=== PATIENT | female | born 1965 | race Caucasian/White ===

== ENCOUNTER 2018-07-14 08:45 | Outpatient (CLI) | payer OTHER, SELFPAY ==
[2018-07-14 09:33] LABS: Hemoglobin A1C 5.9 % (4.5-6.2)
[2018-07-14 10:12] LABS: ALT 26 U/L (12-78); AST 18 U/L (15-37); Albumin 3.5 g/dL (3.4-5.0); Alkaline Phosphatase 61 U/L (46-116); Anion Gap 12.3 mmol/L (3-11); BUN 12 mg/dL (7-18); Bilirubin, Total 0.3 mg/dL (0.2-1.0); CO2 23.7 mmol/L (21.0-32.0); CREATININE 0.89 mg/dL (0.55-1.02); Calcium 8.1 mg/dL (8.5-10.1); Chloride 104 mmol/L (98-107); Cholesterol 191 mg/dL (50-200); Glucose 100 mg/dL (70-100); HDL Cholesterol 35 mg/dL (40-60); LDL CHOLESTEROL 120 mg/dL (<100); Potassium 3.6 mmol/L (3.5-5.1); Sodium 140 mmol/L (136-145); Total Protein 6.9 g/dL (6.4-8.2); Triglyceride 138 mg/dL (30-150)
== END 2018-07-14 09:05 ==
PROVIDERS: PCP Family Medicine; Visit Provider Family Medicine
DX: E78.5 Hyperlipidemia, unspecified (principal); R63.8 Other symptoms and signs concerning food and fluid intake; E11.9 Type 2 diabetes mellitus without complications; Z98.84 Bariatric surgery status
CPT/HCPCS: 36415; 80053; 80061; 83721; 83036

== ENCOUNTER 2019-02-27 10:50 | Outpatient (CLI) | payer OTHER, SELFPAY ==
--- NOTE | 2019-02-27 13:00 | DI.US_ITS ---
EXAM: US LOWER EXTREMITY VENOUS LT CLINICAL HISTORY: left calf pain M79.605. TECHNIQUE: Ultrasound performed using standard protocol. COMPARISON: No exams were available for comparison FINDINGS: There is no evidence of DVT, or superficial thrombophlebitis or a Harrison's cyst. Incidental note is m [place] of a left groin lymph node measuring 3.4 x 0.4 x 1.6 cm.
== END 2019-02-27 11:10 ==
PROVIDERS: PCP Family Medicine; Visit Provider Family Medicine
DX: M79.662 Pain in left lower leg (principal); R59.0 Localized enlarged lymph nodes
CPT/HCPCS: 93971

== ENCOUNTER 2019-05-02 13:53 | Outpatient (CLI) | payer OTHER, SELFPAY ==
--- NOTE | 2019-05-02 15:30 | DI.RAD_ITS ---
EXAM: XR FOOT LT COMPLETE CLINICAL HISTORY: LT FOOT PAIN M79.672 TECHNIQUE: COMPARISON: No exams were available for comparison FINDINGS: Three views were obtained. There are osteophytes at the sites of attachment of the plantar fascia an d Achilles tendon on the calcaneus. No other bony or soft tissue abnormality seen. IMPRESSION:
== END 2019-05-02 14:13 ==
PROVIDERS: PCP Family Medicine; Visit Provider Podiatrist Foot & Ankle Surgery
DX: M79.672 Pain in left foot (principal); M25.772 Osteophyte, left ankle
CPT/HCPCS: 73630

== ENCOUNTER 2019-11-02 18:59 | Outpatient (REF) | payer OTHER, SELFPAY ==
[2019-11-04 00:03] LABS: COVID-19 RT-PCR Result NEGATIVE (Negative)
== END 2019-11-02 19:19 ==
LOC: LBN 18:59
PROVIDERS: PCP Family Medicine; Visit Provider Nurse Practitioner Adult Health
DX: Z20.828 Contact with and (suspected) exposure to other viral communicable diseases (principal)
CPT/HCPCS: U0003

== ENCOUNTER 2019-12-06 15:18 | Outpatient (REF) | payer OTHER, SELFPAY ==
--- NOTE | 2019-12-06 14:00 | PAPFT_PTH ---
PATIENT: Whit Gutierrez LOC: [facility] U#:[id number] AGE/SX: 54/F ROOM: RE12/06/[address]: Nickie Bearden MD, DC : 1965 BED: DIS: 12/06/2019 SPEC #: [id number] RECD: 12/10/19 12:56 STATUS: TREMAYNE LARIOS #: [id number] KAREN: 12/06/19 14:[address]: Nickie Bearden DEPT: [facility] Cytology RECD BY: Vicky Malloy Tissues: 1 - CX/ENDOCX FOR PAP SMEARS Procedures: PAP THIN PREP/UVM Screening HPV DNA PROBE Comments: [id number]
== END 2019-12-06 15:38 ==
LOC: LBN 15:18
PROVIDERS: PCP Family Medicine; Visit Provider Family Medicine
DX: Z12.4 Encounter for screening for malignant neoplasm of cervix (principal); Z11.51 Encounter for screening for human papillomavirus (HPV)
CPT/HCPCS: 88142; 87624

== ENCOUNTER 2020-03-28 17:34 | Outpatient (REF) | payer OTHER, SELFPAY ==
[2020-03-30 09:57] LABS: COVID-19 RT-PCR Result Not Detected ((See Note))
== END 2020-03-28 17:54 ==
LOC: LBN 17:34
PROVIDERS: PCP Family Medicine; Visit Provider Nurse Practitioner Adult Health
DX: Z11.59 Encounter for screening for other viral diseases (principal)
CPT/HCPCS: U0003

== ENCOUNTER 2020-04-21 15:51 | Outpatient (CLI) | payer OTHER, SELFPAY ==
--- NOTE | 2020-04-21 15:30 | DI.RAD_ITS ---
EXAM: XR KNEE RT 4V AP,LAT,CESIA,PAT CLINICAL HISTORY: eval R knee pain, h/o meniscal repari. TECHNIQUE: 2D digital imaging was performed. COMPARISON: No previous for comparison. FINDINGS: Mild periarticular spurring is present. The joint spaces are otherwise well maintained. The bones a re intact and normally mineralized. No joint effusion is seen. The soft tissues are unremarkable. IMPRESSION: Mild degenerative changes of the right knee. DATA REPOSITORY: RADIATION DOSE DELIVERED:
--- NOTE | 2020-04-21 15:30 | DI.RAD_ITS ---
EXAM: XR HEEL LT OS CALCIS CLINICAL HISTORY: worsening L heel pain. TECHNIQUE: 2D digital imaging was performed. COMPARISON: CR XR FOOT LT COMPLETE from 05/02/2019 FINDINGS: There is again seen an enthesophyte at the Achilles insertion site onto the calcaneus. There does ap pear to be soft tissue thickening in the region of the Achilles tendon insertion. Tendinosis or part ial tear cannot be excluded. MRI may be considered if clinically appropriate. The calcaneus is norm ally mineralized. No acute fracture or dislocation. IMPRESSION: DATA REPOSITORY: RADIATION DOSE DELIVERED:
== END 2020-04-21 16:11 ==
PROVIDERS: PCP Family Medicine; Visit Provider Student in an Organized Health Care Education/Training Program
DX: M79.672 Pain in left foot (principal); M17.11 Unilateral primary osteoarthritis, right knee; M77.8 Other enthesopathies, not elsewhere classified
CPT/HCPCS: 73564; 73650

== ENCOUNTER 2020-05-23 19:20 | Outpatient (REF) | payer OTHER, SELFPAY ==
[2020-05-26 21:29] LABS: COVID-19 RT-PCR Result NEGATIVE (Negative)
== END 2020-05-23 19:40 ==
LOC: LBN 19:20
PROVIDERS: PCP Family Medicine; Visit Provider Nurse Practitioner Adult Health
DX: Z11.59 Encounter for screening for other viral diseases (principal)
CPT/HCPCS: U0003

== ENCOUNTER 2020-06-24 00:44 | Outpatient (CLI) | payer OTHER, SELFPAY ==
--- NOTE | 2020-06-24 08:15 | DI.MAMMO_ITS ---
EXAM: MG MAMMO SCREENING CLINICAL HISTORY: screening,Z12.39 TECHNIQUE: Bilateral full field digital CC and MLO mammographic images were obtained with 3D tomosyn thesis and utilizing computer aided detection (CAD). COMPARISON: Available for comparison. FINDINGS: Masses/Architectural Distortion: None seen. Microcalcifications: No suspicious pleomorphic-type are seen. Skin Thickening/Nipple Retraction: None. IMPRESSION: 1. No significant interval change with no specific features of malignancy noted. 2. Unless there is more urgent need, screening mammography is recommended, as per [employer] guidelines. BI-RADS Category 1 - Negative Breast Density - Category B - Scattered areas of fibroglandular density Breast density category C or D implies that the patient has dense breast tissue. Dense breast tissue is very common and is not abnormal but dense breast tissue can make it harder to find cancer on a ma mmogram. Also, dense breast tissue may increase their breast cancer risk. This information about the result of the mammogram report was provided to the patient to raise their awareness. Use this report when you speak with the patient about their risks for breast cancer, which includes their family hist ory. At that time, you may recommend for more screening tests (Ultrasound or MRI) as they might be us eful based on their risk. A negative radiographic report should not delay biopsy if a dominant or clinically suspicious mass is present. Up to ten percent of cancers are not identified on mammography. A negative report may reinforce clinical impression. Adenosis and dense breasts may obscure an underlying neoplasm. False positive reports average 6 to 10%. Patient will receive a letter notifying them of these results.
== END 2020-06-24 01:04 ==
PROVIDERS: PCP Family Medicine; Visit Provider Family Medicine
DX: Z12.31 Encounter for screening mammogram for malignant neoplasm of breast (principal)
CPT/HCPCS: 77063; 77067

== ENCOUNTER 2020-07-09 02:02 | Outpatient (CLI) | payer OTHER, SELFPAY ==
--- NOTE | 2020-07-09 06:15 | DI.MRI_ITS ---
EXAM: MR LOWER JOINT RT WO CLINICAL HISTORY: RT KNEE PAIN, INTERNAL DERANGEMENT,M25.561,M23.91. TECHNIQUE: Multiplanar multisequence MRI was performed. COMPARISON: CR XR KNEE RT 4V AP,LAT,CESIA,PAT from 04/21/2020 FINDINGS: BONES: There is no fracture or contusion pattern. JOINTS: Articular cartilage is unremarkable. There is a small joint effusion. TENDONS: Extensor mechanism: Unremarkable. Medial retinaculum: Unremarkable. Lateral retinaculum: Unremarkable. Popliteus: Unremarkable. MUSCLES: Unremarkable. MENISCI: There is abnormal signal seen in the body and posterior horn of the medial meniscus. The pa tient reports prior meniscal repair. The findings may represent prior surgery versus an acute tear. There is a thin linear for area of increased signal in the body of the lateral meniscus. (Series 90 01, image 19). This may represent a small tear. There is a small lateral parameniscal cyst. SOFT TISSUES: Unremarkable. LIGAMENTS: Anterior Cruciate: The anterior cruciate ligaments appear intact. There is a 6 mm fluid collection a djacent to, or partially imbedded within the anterior cruciate ligament. This may represent a gangli on cyst. Posterior Cruciate: Unremarkable. Medial Collateral:Unremarkable. Lateral Collateral: Unremarkable. OTHER: There is a tiny popliteal cyst. IMPRESSION: 1. Linear hyperintense signal seen in the body of the lateral meniscus which may represent a tear. 2. Postsurgical change versus tear involving the posterior horn and body of the medial meniscus. 3. 6 mm fluid collection addition 2, or partially imbedded within, the anterior cruciate ligament pierce picious for a ganglion cyst. 4. Small joint effusion. 5. Please see the above discussion for complete details. DATA REPOSITORY:
== END 2020-07-09 02:03 | disposition home or self-care (01) ==
LOC: DI 02:02
PROVIDERS: PCP Family Medicine; Visit Provider Student in an Organized Health Care Education/Training Program
DX: M25.561 Pain in right knee (principal); M23.91 Unspecified internal derangement of right knee; M25.461 Effusion, right knee
CPT/HCPCS: 73721

== ENCOUNTER 2020-09-30 03:10 | Outpatient (CLI) | payer OTHER, SELFPAY ==
[2020-10-01 13:32] LABS: COVID-19 RT-PCR UVMMC Result Negative (Negative)
== END 2020-09-30 03:11 | disposition home or self-care (01) ==
LOC: LBO 03:10
PROVIDERS: PCP Family Medicine; Visit Provider Family Medicine
DX: Z20.822 Contact with and (suspected) exposure to COVID-19 (principal)
CPT/HCPCS: U0003

== ENCOUNTER 2020-12-04 04:11 | Outpatient (CLI) | payer OTHER, SELFPAY ==
[2020-12-04 10:04] LABS: Hemoglobin A1C 5.6 % (<5.7)
[2020-12-04 12:06] LABS: ALT 24 U/L (14-59); AST 17 U/L (15-37); Albumin 4.1 g/dL (3.4-5.0); Alkaline Phosphatase 57 U/L (46-116); Anion Gap 9.9 mmol/L (3-11); BUN 7 mg/dL (7-18); Bilirubin, Total 0.6 mg/dL (0.2-1.0); CO2 26.1 mmol/L (21.0-32.0); Calcium 9.2 mg/dL (8.5-10.1); Chloride 105 mmol/L (98-107); Glucose 92 mg/dL (74-106); Magnesium 1.9 mg/dL (1.8-2.4); Potassium 4.2 mmol/L (3.5-5.1); Sodium 141 mmol/L (136-145); Total Protein 7.2 g/dL (6.4-8.2)
[2020-12-04 12:40] LABS: Vitamin D 25 Total 37.7 ng/mL (30-100)
[2020-12-04 14:49] LABS: Calculated LDL 145 mg/dL (<100); Cholesterol 217 mg/dL (<200); HDL Cholesterol 35 mg/dL (40-60); Triglyceride 189 mg/dL (<150)
== END 2020-12-04 04:12 | disposition home or self-care (01) ==
LOC: LBO 04:11
PROVIDERS: PCP Family Medicine; Visit Provider Family Medicine
DX: Z00.00 Encounter for general adult medical examination without abnormal findings (principal); E11.9 Type 2 diabetes mellitus without complications; R19.7 Diarrhea, unspecified; R63.8 Other symptoms and signs concerning food and fluid intake
CPT/HCPCS: 36415; 80053; 80061; 82306; 83036; 83735

== ENCOUNTER 2020-12-09 03:48 | Outpatient (CLI) | payer OTHER, SELFPAY ==
[2020-12-09 10:01] LABS: Source Nasal/Nares
[2020-12-09 14:10] LABS: COVID-19 PCR Negative (Negative)
== END 2020-12-09 03:49 | disposition home or self-care (01) ==
PROVIDERS: PCP Family Medicine; Visit Provider Student in an Organized Health Care Education/Training Program
DX: Z20.822 Contact with and (suspected) exposure to COVID-19 (principal); Z01.818 Encounter for other preprocedural examination
CPT/HCPCS: 87635

== ENCOUNTER 2020-12-09 08:21 | Outpatient (CLI) | payer OTHER, SELFPAY ==
--- NOTE | 2020-12-09 08:15 | RT.EKG_ITS ---
APPROVED REPORT Exam: Resting ECG Reason for Exam: William jerez 12/10/20 Patient Location: O HR:68 bpm ECG Measurements Heart Rate 68 AXIS KS 182 P 18 QRSd 93 QRS 20 QT 422 T 32 QTc 450 Conclusion Sinus rhythm...normal P axis, V-rate 60- 99 Low voltage, extremity leads...all extremity leads <0.5mV
== END 2020-12-09 08:22 | disposition home or self-care (01) ==
LOC: DI.CM 08:22
PROVIDERS: PCP Family Medicine; Visit Provider Family Medicine
DX: Z01.810 Encounter for preprocedural cardiovascular examination (principal)
CPT/HCPCS: 93010

== ENCOUNTER 2020-12-10 07:12 | Day surgery (SDC) | payer OTHER, SELFPAY ==
[2020-12-10] VITALS (9 sets, daily range): BP systolic 105–120; BP diastolic 66–76; PULSE 57–79; RESP 10–16; TEMP 36–36.7; O2SAT 94–98; BMI 32.0
--- NOTE | 2020-12-10 07:31 | W.PREOPHP ---
Date of service: 12/10/20 Assessment and Plan Assessment and plan (1) Achilles bursitis or tendinitis: Status: Acute Assessment and plan: Debridement left achilles tendon and Haglud's deformity. Details of surgery were discussed with patient as well as risks and pertinent anatomy. All questions were answered. History of Present Illness History of Present Illness Chief Complaint: Left ankle pain Narrative: Whit is a 55 year old female who comes in today for a debridement of her left achilles tendon with Venu's debridement as well. She has been dealing with left ankle pain for over one year now since July of 2019. She has failed conservative treatments including heel lifts, PT and OTC medications. At this pont Dr. Pedro offers surgical intervention and she is anxious to proceed. Pertinent Surgical Information Patient denies history of hypertension, CVA, NV, angina, asthma, COPD, renal or liver disorders, hepatitis, bleeding disorders, diabetes, immune or thyroid disorders. No complications from anesthesia. Review of Systems Constitutional Constitutional: Denies fever(s) ENT Ears, Nose, Mouth, and Throat: Denies dizziness and Denies sore throat Cardiovascular Cardiovascular: Denies chest pain, Denies palpitations and Denies dyspnea Respiratory Respiratory: Denies cough and Denies dyspnea Gastrointestinal Gastrointestinal: Denies abdominal pain, Denies melena, Denies hematochezia, Denies diarrhea, Denies nausea and Denies vomiting Genitourinary Genitourinary: Denies hematuria and Denies dysuria Neurologic Neurologic: Denies dizziness Endocrine Endocrine: Denies palpitations [facility] Medical History Chondromalacia (03/02/17) Depressive disorder Headache Herpes simplex (05/05/01) Hyperlipidemia Increased BMI Lap banding -2006 Malignant neoplasm of skin Medial meniscus tear (03/02/17) 03/02/17 [facility]-LEFT KNEE Pes planus (10/19/12) Right knee pain Sinusitis Surgical History GASTRIC LAP BAND (~04/2007) Ligation of fallopian tube (~1990) Meniscectomy 2000 RIGHT 01/20 LEFT Repair of umbilical hernia VEIN STRIPPING (~1997) Family History Nephew Neoplasm TONGUE Mother , 44 Substance abuse Heart disease Myocardial infarction Alcohol abuse Hyperlipidemia Essential hypertension Father Diabetes Essential hypertension Depression Heart disease Hyperlipidemia Sister , 15 Turk's sarcoma Sister , 22 Ataxia RANDAL Cancer Brother No problems noted. Maternal Grandfather , 60 Heart disease Stroke Paternal Grandfather , 65 Heart disease Myocardial infarction Alcohol abuse Maternal Grandmother , 80 Essential hypertension Heart disease Stroke Paternal Grandmother , 95 Asthma Daughter Depression Daughter No problems noted. Social History (Updated 12/09/20 @ 14:21 by Fredy Stovall) Smoking/Tobacco Use Status: Never Smoking risk assessment performed?: Yes Alcohol Intake: current Alcohol Intake frequency: a few times a month Alcohol type: beer, wine and hard liquor Drug use: Never Substance use type: does not use Caregiver/Support person: No Household members: spouse Housing: house Communication Needs: None Pets and animals: No Sexually active: No Do you think of yourself as: straight/heterosexual Current gender identity: female What is your relationship status?: How often do you talk on the phone with friends or family?: three or more times per week How often do you get together with friends or relatives?: twice per week How often do you attend druze or rastafari services?: decline to answer Do you belong to any clubs or organized social groups?: no Panel score (0-1 are the most socially isolated patients): 2 Duration: < 15 minutes/day Priscilla/Restoration: Pentecostalism Special priscilla needs: No Seatbelt use: always Helmet use: Yes Drive intox or ride w/intox straight truck driver: No Do you feel safe at home: Yes Do you feel safe in your relationship?: Yes Meds Allergies and Home Medications Allergies Allergy/AdvReac Type Severity Reaction Status Date / Time No Known Allergies Allergy Verified 12/09/20 09:14 Home Medications Medication Instructions Recorded Confirmed Type acetaminophen [Tylenol Extra 500 mg PO qid prn 03/11/17 12/09/20 History Strength] multivitamin with minerals 1 cap PO DAILY cap 05/02/18 12/09/20 History cetirizine 10 mg tablet 10 mg PO DAILY PRN 07/18/18 12/09/20 History cholecalciferol (vitamin D3) 50 50 mcg PO DAILY 06/12/20 12/09/20 History mcg (2,000 unit) capsule valacyclovir 500 mg tablet 500 mg PO BID PRN #28 tab-cap 07/07/20 12/09/20 Rx cyanocobalamin (vitamin B-12) 1,000 mcg PO DAILY 12/10/20 12/10/20 History [Vitamin B-12] Exam Const General: cooperative and no acute distress Orientation: alert and awake [facility] Head: normocephalic and atraumatic Other: soft palate rises symmetrically, no erythema Eyes Conjunctivae: conjunctivae normal Sclera: sclerae normal Resp Effort & Inspection: normal respiratory effort Auscultation: clear to auscultation bilaterally and no wheezes Cardio Rate: regular rate Rhythm: regular rhythm Heart Sounds: S1 normal, S2 normal and no murmurs GI Palpation: soft, no hepatosplenomegaly and nontender Auscultation: normal bowel sounds
[2020-12-10] MEDS: Celecoxib 200 MG CAP 400 MG PO (07:49)
[2020-12-10] MEDS: Acetaminophen 500 MG TAB 1000 MG PO (07:50)
--- NOTE | 2020-12-10 07:59 | PDOC.DSDIS_ITS ---
Discharge Plan Disposition Patient Disposition: HOME Condition: Good Discharge Details Reason For Visit: Achilles Debridement L ankle Attending Provider: Carroll Pedro Primary Care Provider: Nickie Bearden Home Meds and New Rx's Prescriptions: New ibuprofen 600 mg tablet 600 mg PO TID PRN (Reason: pain) Qty: 30 RF: 0 acetaminophen 325 mg capsule 650 mg PO ONCE PRNQty: 60 RF: 0 hydrocodone-acetaminophen 5-325 mg tablet 1 tab PO Q6H PRN (Reason: pain) Qty: 10 RF: 0 aspirin 81 mg tablet,delayed release (DR/EC) 81 mg PO BID Qty: 60 RF: 0 Continued cholecalciferol (vitamin D3) 50 mcg (2,000 unit) capsule 50 mcg PO DAILY RF: 0 multivitamin with minerals capsule 1 cap PO DAILY RF: 0 cetirizine [Zyrtec] 10 mg tablet 10 mg PO DAILY PRNRF: 0 valacyclovir [Valtrex] 500 mg tablet 500 mg PO BID PRN (Reason: herpes) Qty: 28 RF: 5 cyanocobalamin (vitamin B-12) [Vitamin B-12] 1,000 mcg Tablet 1,000 mcg PO DAILY RF: 0 Discontinued acetaminophen [Tylenol Extra Strength] 500 MG tablet 500 mg PO qid prn RF: 0 Discharge Instructions Additional Instructions: Achilles Debridement discharge Instructions Activity: You are NON WEIGHT BEARING. You should keep the leg elevated as much as possible. You may wiggle your toes and move your hip and knee. Dressings: You should keep your splint clean and dry. Do NOT get wet or dirty. If you have issues with your splint, please call the office at [phone] or the hospital after hours. Medications: - You should take Tylenol and Ibuprofen around the clock for baseline pain. - You have been prescribed a stronger narcotic for breakthrough pain. - You should take a Baby Aspirin (81mg) twice a day for blood clot prevention. Follow-up: 2 weeks Referrals: Carroll Pedro MD [ [facility] STAFF PHYSICIAN] - Equipment/Supplies: Walker Activity:: Elevate Remove Dressings/Wound Care:: Do Not Remove Shower/Bathe:: Cover Diet:: As Tolerated Discharge Orders Discharge Orders: Discharge Order (Routine); Ordered 07/07/21 Ordered By: Nimesh Elias DS: Diagnosis Discharge Diagnosis (1) Achilles bursitis or tendinitis: Status: Acute
[2020-12-10] MEDS: Lactated Ringers 1,000 ML 80 ML IV (08:00)
--- NOTE | 2020-12-10 08:15 | ANES.PREOP_ITS ---
General Info Date of Service Date Performed: 12/10/20 Height: 5 ft 3.5 in Weight: 83.3 kg Body Mass Index (BMI): 32.0 Surgical Procedure: Operation Date: 12/10/20 08:40 Proposed Procedures Side Surgeon p Ankle Achilles Tendon Debridement Left Carroll Pedro MD s ARETHA RESECYION, ACHILLES REATTACHMENT Left Carroll Pedro MD Meds Allergies and Home Medications Allergies Allergy/AdvReac Type Severity Reaction Status Date / Time No Known Allergies Allergy Verified 12/09/20 09:14 Home Medication Medication Instructions Recorded multivitamin with minerals 1 cap PO DAILY cap 05/02/18 cetirizine 10 mg tablet 10 mg PO DAILY PRN 07/18/18 cholecalciferol (vitamin D3) 50 50 mcg PO DAILY 06/12/20 mcg (2,000 unit) capsule valacyclovir 500 mg tablet 500 mg PO BID PRN #28 tab-cap 07/07/20 acetaminophen 650 mg PO ONCE PRN #60 cap 12/10/20 aspirin 81 mg PO BID #60 tab 12/10/20 cyanocobalamin (vitamin B-12) 1,000 mcg PO DAILY 12/10/20 [Vitamin B-12] hydrocodone-acetaminophen 1 tab PO Q6H PRN #10 tab 12/10/20 ibuprofen 600 mg PO TID PRN #30 tab 12/10/20 Current Visit Medications: Current Medications Generic Name Dose Route Start Last Admin Trade Name Freq PRN Reason Stop Dose Admin Acetaminophen 1,000 mg 12/10/20 06:00 12/10/20 07:50 Acetaminophen 500 Mg Tab PO 12/10/20 16:00 1,000 mg PREOP JEWELS Administration Acetaminophen 650 mg 12/10/20 07:57 Acetaminophen 325 Mg Tab PO Q4H PRN PRN Hydrocodone Bitart/Acetaminophen 0 tab 12/10/20 07:57 Hydrocodone 5/Acetaminophen 325 Tab PO Q3H PRN PRN Pain Celecoxib 400 mg 12/10/20 06:00 12/10/20 07:49 Celecoxib 200 Mg Cap PO 12/10/20 16:00 400 mg PREOP JEWELS Administration Ringer's Solution 1,000 mls @ 80 mls/hr 12/10/20 06:00 12/10/20 08:00 IV 01/08/21 23:59 80 mls/hr INFUSION JEWELS Administration Cefazolin Sodium/Dextrose 2 gm in 50 mls @ 100 mls/hr 12/10/20 06:00 Ancef Duplex IVPB 01/08/21 23:59 PREOP JEWELS IV Miscellaneous Supplies 1 each 12/10/20 06:00 Iv Access IV 01/08/21 23:59 DIRECTED JEWELS Sodium Chloride 0 ml 12/10/20 06:00 Normal Saline Flush 10 Ml Syr IV 01/08/21 23:59 PRN PRN Sodium Chloride 0 ml 12/10/20 06:00 Normal Saline 10 Ml Vial IJ 01/08/21 23:59 DIRECTED PRN Sterile Water 0 ml 12/10/20 06:00 Water,Injection,Sterile 10 Ml Vial IJ 01/08/21 23:59 DIRECTED PRN PFSH Active Problems Active Problems: Problem Status Onset Code Diarrhea R19.7 Achilles bursitis or tendinitis M76.60 Internal derangement of right knee M23.91 Right knee pain M25.561 Herpes simplex 05/05/01 B00.9 Achilles bursitis or tendinitis M76.60 Change in stool Pes planus 10/19/12 M21.40 Medial meniscus tear 03/02/17 S83.249A Malignant neoplasm of skin C44.90 Increased BMI R63.8 Hyperlipidemia E78.5 Depressive disorder F32.9 Chondromalacia 03/02/17 M94.20 Annual physical exam 07/12/17 Z00.00 Medical History Medical History Chondromalacia (03/02/17) Depressive disorder Headache Herpes simplex (05/05/01) Hyperlipidemia Increased BMI Lap banding -2006 Malignant neoplasm of skin Medial meniscus tear (03/02/17) 03/02/17 [facility]-LEFT KNEE Pes planus (10/19/12) Right knee pain Sinusitis Surgical History Surgical History GASTRIC LAP BAND (~04/2007) Ligation of fallopian tube (~1990) Meniscectomy 2000 RIGHT 01/20 LEFT Repair of umbilical hernia VEIN STRIPPING (~1997) Tobacco Smoking/Tobacco Use Status: Never Passive smoking exposure: Yes Alcohol Alcohol Intake: current Alcohol intake frequency: a few times a month Alcohol ty pe: beer, wine and hard liquor Substance Use Substance use: Never Substance use type: does not use Vital Signs and Lab Results Vital Signs Most Recent Vital Signs in EMR: Most Recent Vital Signs Temp Pulse Resp BP Pulse Ox 36.7 C 79 16 120/76 98 12/10/20 07:34 12/10/20 07:34 12/10/20 07:34 12/10/20 07:34 12/10/20 07:34 Point of Care Results Point of Care Results: POC- Test(urine) Negative 12/10/20 07:51 Lab Results Blood Type / Crossmatch: No Data to Display Complete Blood Count: No Data to Display Complete Metabolic Panel: Sodium Level 141 mmol/L (136-145) 12/04/20 09:38 12/04/20 Potassium Level 4.2 mmol/L (3.5-5.1) 12/04/20 09:38 12/04/20 Chloride Level 105 mmol/L (98-107) 12/04/20 09:38 12/04/20 Carbon Dioxide Level 26.1 mmol/L (21.0-32.0) 12/04/20 09:38 12/04/20 Blood Urea Nitrogen 7 mg/dL (7-18) 12/04/20 09:38 12/04/20 Creatinine 1.0 mg/dL (0.55-1.02) 12/04/20 09:38 12/04/20 Estimated GFR/1.73 m2 58.00 (mL/min/1.73m2) 12/04/20 09:38 12/04/20 Magnesium Level 1.9 mg/dL (1.8-2.4) 12/04/20 09:38 12/04/20 Calcium Level 9.2 mg/dL (8.5-10.1) 12/04/20 09:38 12/04/20 Albumin 4.1 g/dL (3.4-5.0) 12/04/20 09:12/04/20 Glucose Level 92 mg/dL (74-106) 12/04/20 09:38 12/04/20 Hemoglobin A1c 5.6 % (<5.7) 12/04/20 09:38 12/04/20 Liver Function Panel: Alanine Aminotransferase (ALT/SGPT) 24 U/L (14-59) 12/04/20 09:38 12/04/20 Aspartate Amino Transf (AST/SGOT) 17 U/L (15-37) 12/04/20 09:38 12/04/20 Coagulation Panel: No Data to Display Cardiac Panel: No Data to Display Arterial Blood Gas: No Data to Display Venous Blood Gas: No Data to Display Pancreas Panel: No Data to Display Thyroid Panel: No Data to Display Infectious Disease: Coronavirus (COVID-19)(PCR) Negative (Negative) 12/09/20 09:04 12/09/20 Coronavirus 2019 Source Nasal/Nares 12/09/20 09:04 12/09/20 Blood Cultures: No Data to Display Toxicology Panel: No Data to Display Panel: No Data to Display Anesthesia Assessment and Plan Anesthesia History Personal History: No History of Anesthesia Complications and Other (Hypotentension with SAB) Family History: No Family History of Anesthesia Complications Exercise Tolerance Exercise Tolerance: Metabolic Equivalents>4 Pertinent Negatives Pertinent Negatives: No Symptoms of GERD, No Major Cardiovascular Symptoms or Complaints, No Major Pulmonary Symptoms or Complaints and No History of CVA/TIA Cardiac & Pulmonary Exam Cardiac Exam: Normal S1/S2 Heart Sounds Pulmonary Exam: Clear Bilateral Breath Sounds Airway Exam Known Difficult Airway: No Mallampati Class: 1 Mouth Opening: Normal (> 3cm) Thyromental Distance: Greater than 3 cm Neck Range of Motion: Full ROM Neck Circumference: Normal Teeth Condition: Normal Dentition Airway Comments: Front lower tooth capped 41? ASA Classification ASA Score: ASA 2 Emergency Case?: No NPO Status NPO Status: NPO Clears >2 hours, Solids >8 hours Status Status: Negative HCG Anesthesia Plan Resuscitation Status: Full Code Anesthesia Technique: General Anesthesia Airway Planned: Endotracheal Tube Monitors Used: Standard Monitors
[2020-12-10] MEDS: ceFAZolin 2 GM/50 ML BAG IVPB (09:24)
[2020-12-10] MEDS: Bupivacaine 0.25% Pres-Free 30 ML VIAL (10:23)
--- NOTE | 2020-12-10 10:28 | W.PM.OP ---
Date of service: 12/10/20 Time of Service: 10:29 Operative Note Operative Note DATE OF PROCEDURE: 12/10/20 PRE-OP DIAGNOSIS: Left Achilles Tendinitis, Venu Deformity POST-OP DIAGNOSIS: same PROCEDURE: Left Achilles Insertion Debridement, Venu Resection, Achilles Tendon Repair SURGEON: Carroll Pedro ONCOLOGIST: Nimesh Elias ANESTHESIA TYPE: General LMA/ETT Refer to Anesthesia Record ESTIMATED BLOOD LOSS: 10 PATHOLOGY: none sent TOURNIQUET TIME: 0 COMPLICATIONS: None Patient was transported to: PACU Indications: Whit is a 55 year old female who has had persistent pain about the heel. Clinical evaluation and x-rays demonstrated clear calcific tendinitis of the Achilles insertion. She has failed a host of conservative options but continues to have pain and difficulty with shoe wear. Therefore, I offered operative intervention in the form of Achilles debridement, bony prominence resection, and Achilles tendon repair as indicated. I reviewed the risk of the procedure to include bleeding, infection, pain, stiffness, damage to nerves and vessels, weakness, Achilles rerupture or retear, wound healing complications. Despite these risk,she elected to proceed. Findings: There were notable calcific prominence of the calcaneal tuberosity which were resected and the calcaneus smooth, a small Venu deformity was removed, and Achilles repaired back down to the calcaneus. Procedure Description: Whit was greeted in the preoperative holding area. Identity was confirmed the correct side was identified and marked. Consent was reviewed the patient and signed. History of physical was updated. She was taken to the operating room. A general anesthetic was administered and then the patient was placed into the prone position. Chest rolls were placed to well-padded the chest and allow for chest expansion. The arms were placed in the 90-90 position with all bony prominences well-padded. There was gel pad placed underneath the knees and a prone ramp was placed underneath the operative leg. No tourniquet was used. Prophylactic antibiotics in the form of Cefazolin were given. A timeout was performed for safe surgery. The proposed surgical site was then injected with 0.25% bupivacaine and Exparel. A midline incision was then made overlying the Achilles tendon and its insertion on the calcaneus. This incision was taken down all the way to the peritenon of the Achilles tendon and its insertion on the calcaneus. Full-thickness flaps were then elevated medially and laterally to better expose Achilles tendon and its insertion. A midline incision was then made within the Achilles tendon. The tendon was elevated off of the calcaneus medially and laterally leaving some bands at the far reaches for later tensioning of the Achilles tendon. Calcific deposits from in the tendon were then removed sharply. Prominences over the calcaneal tuberosity were also removed with a rongeur. I took a chisel to then resect a small Venu deformity. This was checked by dorsiflexing the foot and inspecting for any impingement of the calcaneal prominence onto the Achilles tendon I also used a chisel to chamfer the medial lateral prominences of the calcaneal tuberosity as well. Once this was completed I then inspected the calcaneal insertion for any remnant sharp prominences or calcifications. A rasp was also used to smooth this down fully until there is no prominence projecting either posteriorly, medially, laterally. I made sure that the left attachments of the Achilles tendon to help guide the repair. I then placed a single 6.0 mm Mitek Fastin anchor into the superior margin of the calcaneal tuberosity. I placed a locking Krak?w type suture into each side of the Achilles tendon with 1 limb of the suture from the anchor. The extra limb of the suture was then passed through the tendon wants to serve as a damari. Once these both were passed I was able to shuttle the tendon back down to the bone by pulling on the free limb of the suture. The sutures were then tied which reapproximated the Achilles tendon down to the tuberosity quite nicely. Using the tails of the suture as well as the remnant tails from the previously tied sutures, I incorporated these into a [place] [employer] 4.75 mm knotless anchor. This reapproximated the tendon over the entire footprint of the calcaneus. The suture limbs were then cut. The periphery of the Achilles tendon slit was inspected and any residual split of the tendon was reapproximated. The wounds and thoroughly irrigated. The deep tissues were anesthetized with 0.2% bupivacaine. The Achilles paratenon was closed with a running 3-0 Vicryl. The deep tissue was closed with 3-0 Vicryl followed by a 4-0 nylon. Xeroform, 4 x 4, ABD, web roll was applied to the foot in a short leg splint was placed. The patient was then placed into the supine position. There is no notable complications from the prone positioning of the surgery. She was in transition back to the hospital stretcher in a stable condition. The procedure was tolerated well and the patient was transferred back to the PACU in stable condition.
[2020-12-10] MEDS: Normal Saline Flush 10 ML SYR IV (11:29)
[2020-12-10] MEDS: HYDROmorphone 2 MG/ML VIAL IVP (11:29)
--- NOTE | 2020-12-10 12:02 | W.ANESPOSTOP ---
Postoperative Evaluation Date, Time and Location Date Performed: 12/10/20 Time Performed: 12:02 Patient Location: Day Surgery Unit Vital Signs Most Recent Imported Vital Signs: Most Recent Vital Signs Temp Pulse Resp BP Pulse Ox 36.0 C L 57 L 14 110/68 94 12/10/20 11:54 12/10/20 11:54 12/10/20 11:54 12/10/20 11:54 12/10/20 11:54 Pain Score Most Recent Pain Score: Most Recent Pain Score Pain Level 2 12/10/20 11:54 Assessment Mental Status: Awake (Alert & Oriented to Patient Baseline) Airway and Respiratory Function: Patent airway with normal (patient baseline) respiratory exam Cardiovascular Function: Hemodynamically Stable Hydration Status: Adequately Hydrated Nausea & Vomiting: No Nausea or Vomiting Pain: Pain is tolerable per patient Peripheral Nerve Block: Patient did not receive a nerve block
== END 2020-12-10 13:20 | disposition home or self-care (01) ==
PROVIDERS: PCP Family Medicine; Visit Provider Student in an Organized Health Care Education/Training Program
PROC: (CPT 11043; principal; 2020-12-10 08:30)
DX: M76.62 Achilles tendinitis, left leg (principal); M89.8X7 Other specified disorders of bone, ankle and foot
CPT/HCPCS: 27650; 28119; 81025; C1713; J0131; J0690; J1100; J1885; J2001; J2250; J2405

== ENCOUNTER → 2022-02-04 02:59 | Outpatient (CLI) | payer OTHER, SELFPAY ==
--- NOTE | 2022-02-04 09:15 | DI.MAMMO_ITS ---
Exam(s) MAMMO SCREENING EXAM: MAMMO SCREENING CLINICAL HISTORY: screening, Z12.39. TECHNIQUE: Bilateral full field digital CC and MLO mammographic images were obtained with 3D tomosyn thesis and utilizing computer aided detection (CAD). COMPARISON: Prior mammograms were reviewed, the most recent being June 2020. FINDINGS: There are no new spiculated masses nor malignant appearing microcalcification groups. Benign-appearing microcalcifications again noted. There is no significant architectural distortion nor skin thickening-retraction. IMPRESSION: No radiographic evidence of malignancy. Stable benign findings. BI-RADS Category 1 - Negative Breast Density - Category A - Almost entirely fatty Breast density Category C or D implies that the patient has dense breast tissue. Dense breast tissue can make it harder to find cancer on a mammogram. Dense breast tissue is also associated with an incr eased risk of breast cancer. This information about the result of the mammogram report was provided to the patient to raise their awareness. Use this report when you speak with the patient about their risks for breast cancer, which includes their family history. At that time, you may recommend additional screening tests (Ultrasoun d or MRI) as these tests may add significant information. A negative radiographic report should not delay biopsy if a dominant or clinically suspicious mass is present. Up to ten percent of cancers are not identified on mammography. A negative report may reinforce clinical impression. Adenosis and dense breasts may obscure an underlying neoplasm. False positive reports average 6 to 10%. Patient will receive a letter notifying them of these results.
== END ==
PROVIDERS: PCP Family Medicine; Visit Provider Family Medicine
DX: Z12.31 Encounter for screening mammogram for malignant neoplasm of breast (principal); R92.0 Mammographic microcalcification found on diagnostic imaging of breast
CPT/HCPCS: 77063; 77067

== ENCOUNTER 2022-02-10 04:17 | Outpatient (CLI) | payer OTHER, SELFPAY ==
[2022-02-10 07:56] LABS: HCT 36.6 % (36.0-46.0); HGB 12.1 g/dL (11.2-15.7); MCH 29.1 pg (27.0-33.0); MCHC 33.1 % (32.0-36.0); MCV 88 fL (80-95); MPV 10.6 fL (8.0-11.0); Platelet Count 266 10^3/uL (130-400); RBC 4.16 10^6/uL (3.93-5.22); RDW 12.4 % (11.7-14.6); RDW-SD 40.2 fL; WBC 7.26 10^3/uL (4.4-10.8)
[2022-02-10 08:49] LABS: ALT 28 U/L (14-59); AST 16 U/L (15-37); Albumin 4.1 g/dL (3.4-5.0); Alkaline Phosphatase 69 U/L (46-116); Anion Gap 10.3 mmol/L (3-11); BUN 25 mg/dL (7-18); Bilirubin, Total 0.3 mg/dL (0.2-1.0); CO2 26.7 mmol/L (21.0-32.0); CREATININE 1.2 mg/dL (0.55-1.02); Calculated LDL 160 mg/dL (<100); Chloride 105 mmol/L (98-107); Cholesterol 233 mg/dL (<200); Estimated GFR 53.79 (mL/min/1.73m2); Glucose 103 mg/dL (74-106); HDL Cholesterol 43 mg/dL (40-60); Potassium 3.7 mmol/L (3.5-5.1); Sodium 142 mmol/L (136-145); TSH (W/Ref FT4) 2.53 uIU/mL (0.36-3.74); Triglyceride 152 mg/dL (<150)
[2022-02-10 13:38] LABS: Lab Add On Test DONE
[2022-02-10 13:57] LABS: Hemoglobin A1C 5.7 % (<5.7)
== END 2022-02-10 04:18 | disposition home or self-care (01) ==
LOC: LBO 04:17
PROVIDERS: PCP Family Medicine; Visit Provider Family Medicine
DX: Z00.00 Encounter for general adult medical examination without abnormal findings (principal)
CPT/HCPCS: 36415; 80053; 80061; 85027; 83036; 84443

== ENCOUNTER 2022-12-09 01:52 | Outpatient (CLI) | payer OTHER, SELFPAY ==
--- NOTE | 2022-12-09 11:04 | DI.RAD_ITS ---
Exam(s) XR ABDOMEN FLAT PLATE EXAM: 2D digital imaging was performed. CLINICAL HISTORY: CHRONIC DIARRHEA, K52.9, INTERMITTENT LARGE VOLUME WITH FECAL INCONTIENCE. COMPARISON: 01 August 2017 TECHNIQUE: Supine views of the abdomen performed. FINDINGS: BOWEL GAS PATTERN: Nondistended. No significant stool visible. CALCIFICATIONS: No radiopaque calcifications. OSSEOUS STRUCTURES: Normal for age. OTHER FINDINGS: Tubing again noted from the upper through mid right-sided the abdomen, unchanged. IMPRESSION: 1. Nonobstructive bowel gas pattern. Normal quantity of stool. DATA REPOSITORY: RADIATION DOSE DELIVERED:
== END 2022-12-09 02:12 ==
LOC: DI 01:52
PROVIDERS: PCP Family Medicine; Visit Provider Internal Medicine Gastroenterology
DX: K52.9 Noninfective gastroenteritis and colitis, unspecified (principal)
CPT/HCPCS: 74018

== ENCOUNTER 2022-12-09 03:04 | Outpatient (CLI) | payer OTHER, SELFPAY ==
[2022-12-09 11:31] LABS: HCT 40.4 % (36.0-46.0); HGB 13.2 g/dL (11.2-15.7); MCH 29.5 pg (27.0-33.0); MCHC 32.7 % (32.0-36.0); MCV 90 fL (80-95); MPV 10.9 fL (8.0-11.0); Platelet Count 291 10^3/uL (130-400); RBC 4.48 10^6/uL (3.93-5.22); RDW 12.4 % (11.7-14.6); RDW-SD 41.1 fL; WBC 7.07 10^3/uL (4.4-10.8)
[2022-12-09 12:03] LABS: Hemoglobin A1C 5.3 % (<5.7)
[2022-12-09 12:10] LABS: C-Reactive Protein 0.37 mg/dL (0.0-0.3)
[2022-12-09 12:12] LABS: Iron 94 ug/dL (50-170); Total Iron Binding Capacity 278 ug/dL (250-450)
[2022-12-09 12:23] LABS: ALT 26 U/L (14-59); AST 20 U/L (15-37); Albumin 4.1 g/dL (3.4-5.0); Alkaline Phosphatase 60 U/L (46-116); Anion Gap 8.7 mmol/L (3-11); BUN 17 mg/dL (7-18); Bilirubin, Total 0.4 mg/dL (0.2-1.0); CO2 29.3 mmol/L (21.0-32.0); Calcium 8.8 mg/dL (8.5-10.1); Calculated LDL 140 mg/dL (<100); Chloride 103 mmol/L (98-107); Cholesterol 230 mg/dL (<200); Estimated GFR 66.53 (mL/min/1.73m2); Ferritin 144 ng/mL (8-252); Glucose 92 mg/dL (74-106); HDL Cholesterol 47 mg/dL (40-60); Potassium 3.8 mmol/L (3.5-5.1); Sodium 141 mmol/L (136-145); TSH (W/Ref FT4) 1.85 uIU/mL (0.36-3.74); Total Protein 8.2 g/dL (6.4-8.2); Triglyceride 216 mg/dL (<150)
[2022-12-10 09:39] LABS: IgA 301 mg/dL (85-499)
[2022-12-13 14:20] LABS: Tissue Transglutaminase IgA <1.2 U/mL (<4.0)
== END 2022-12-09 03:05 | disposition home or self-care (01) ==
LOC: LBO 03:05
PROVIDERS: PCP Family Medicine; Visit Provider Family Medicine
DX: R53.83 Other fatigue (principal); R73.03 Prediabetes; R63.5 Abnormal weight gain; R79.89 Other specified abnormal findings of blood chemistry; E78.5 Hyperlipidemia, unspecified; R79.82 Elevated C-reactive protein (CRP)
CPT/HCPCS: 36415; 80053; 80061; 82784; 85027; 82728; 83036; 83540; 83550; 84443; 86140

== ENCOUNTER 2022-12-24 15:16 | Outpatient (REF) | payer OTHER, SELFPAY ==
[2022-12-28 18:18] LABS: Calprotectin <50.0 mcg/g
[2022-12-28 19:40] LABS: Pancreatic Elastase, F 108 mcg/g
== END 2022-12-24 15:17 | disposition home or self-care (01) ==
LOC: LBN 15:16
PROVIDERS: PCP Family Medicine; Visit Provider Internal Medicine Gastroenterology
DX: K52.9 Noninfective gastroenteritis and colitis, unspecified (principal)
CPT/HCPCS: 82656; 83993

== ENCOUNTER 2023-03-14 15:03 | Outpatient (REF) | payer OTHER, SELFPAY ==
--- NOTE | 2023-03-14 13:20 | PAPFT_PTH ---
PATIENT: Whit Gutierrez LOC: [facility] U#:[id number] AGE/SX: 57/F ROOM: RE03/14/[address]: Nickie Bearden MD, DC : 1965 BED: DIS: 03/14/2023 SPEC #: [id number] RECD: 03/15/23 15:37 STATUS: TREMAYNE REQ #: [id number] KAREN: 03/14/23 13:[address]: Nickie Bearden DEPT: [facility] Cytology RECD BY: Cheri Rosario Tissues: 1 - CX/ENDOCX FOR PAP SMEARS Procedures: PAP THIN PREP/UVM Screening HPV DNA PROBE Comments: [id number]
== END 2023-03-14 15:04 | disposition home or self-care (01) ==
LOC: LBN 15:03
PROVIDERS: PCP Family Medicine; Visit Provider Family Medicine
DX: Z12.4 Encounter for screening for malignant neoplasm of cervix (principal); Z11.51 Encounter for screening for human papillomavirus (HPV)
CPT/HCPCS: 88142; 87624

== ENCOUNTER → 2023-03-30 00:52 | Outpatient (CLI) | payer OTHER, SELFPAY ==
--- NOTE | 2023-03-30 08:45 | DI.MAMMO_ITS ---
Exam(s) MAMMO SCREENING EXAM: MAMMO SCREENING CLINICAL HISTORY: screening,z12.39. TECHNIQUE: Bilateral full field digital CC and MLO mammographic images were obtained with 3D tomosyn thesis and utilizing computer aided detection (CAD). COMPARISON: Prior mammograms were reviewed. FINDINGS: There has been no significant change in the appearance and distribution of the fibroglandular tissue. There are no new spiculated masses nor malignant appearing microcalcification groups. Benign-appearing microcalcifications again noted, unchanged. There is no significant architectural distortion nor skin thickening-retraction. IMPRESSION: No radiographic evidence of malignancy. Stable benign-appearing findings. BI-RADS Category 2 - Benign Findings Breast Density - Category A - Almost entirely fatty Breast density Category C or D implies that the patient has dense breast tissue. Dense breast tissue can make it harder to find cancer on a mammogram. Dense breast tissue is also associated with an incr eased risk of breast cancer. This information about the result of the mammogram report was provided to the patient to raise their awareness. Use this report when you speak with the patient about their risks for breast cancer, which includes their family history. At that time, you may recommend additional screening tests (Ultrasoun d or MRI) as these tests may add significant information. A negative radiographic report should not delay biopsy if a dominant or clinically suspicious mass is present. Up to ten percent of cancers are not identified on mammography. A negative report may reinforce clinical impression. Adenosis and dense breasts may obscure an underlying neoplasm. False positive reports average 6 to 10%. Patient will receive a letter notifying them of these results.
== END ==
PROVIDERS: PCP Family Medicine; Visit Provider Family Medicine
DX: Z12.31 Encounter for screening mammogram for malignant neoplasm of breast (principal)
CPT/HCPCS: 77063; 77067

== ENCOUNTER 2023-03-31 12:08 | Outpatient (CLI) | payer OTHER, SELFPAY ==
[2023-04-04 17:57] LABS: Apolipoprotein B, Serum 108 mg/dL (48-124); Beta VLDL Cholesterol Not Detected mg/dL (<15); Beta VLDL Triglycerides Not Detected mg/dL (<15); Cholesterol, Total, CDC 228 mg/dL; Chylomicron Cholesterol Not Detected; Chylomicron Triglycerides Not Detected; HDL Cholesterol, CDC 45 mg/dL (>=50); LDL Cholesterol 145 mg/dL; LDL Triglycerides 51 mg/dL (<=50); Lp(a) Cholesterol <5 mg/dL (<5); LpX Not detected; Triglycerides, CDC 164 mg/dL; VLDL Cholesterol 38 mg/dL (<30); VLDL Triglycerides 90 mg/dL (<120)
== END 2023-03-31 12:09 | disposition home or self-care (01) ==
LOC: LBO 12:08
PROVIDERS: PCP Family Medicine; Visit Provider Family Medicine
DX: E78.5 Hyperlipidemia, unspecified (principal)
CPT/HCPCS: 36415; 80061; 82172; 82664

== ENCOUNTER 2023-11-23 20:12 | Outpatient (CLI) | payer OTHER, SELFPAY ==
[2023-11-28 16:37] LABS: Apolipoprotein B, Serum 55 mg/dL (48-124); Beta VLDL Cholesterol Not Detected mg/dL (<15); Beta VLDL Triglycerides Not Detected mg/dL (<15); Cholesterol, Total, CDC 132 mg/dL; Chylomicron Cholesterol Not Detected; Chylomicron Triglycerides Not Detected; HDL Cholesterol, CDC 44 mg/dL (>=50); LDL Cholesterol 66 mg/dL; LDL Triglycerides 27 mg/dL (<=50); Lp(a) Cholesterol <5 mg/dL (<5); LpX Not detected; Triglycerides, CDC 103 mg/dL; VLDL Cholesterol 22 mg/dL (<30); VLDL Triglycerides 61 mg/dL (<120)
== END 2023-11-23 20:13 | disposition home or self-care (01) ==
LOC: LBO 20:15
PROVIDERS: PCP Family Medicine; Visit Provider Family Medicine
DX: E78.5 Hyperlipidemia, unspecified (principal)
CPT/HCPCS: 36415; 80061; 82172; 82664

== ENCOUNTER 2024-10-02 00:28 | Outpatient (CLI) | payer OTHER, SELFPAY ==
[2024-10-02 12:52] LABS: HCT 37.8 % (36.0-46.0); HGB 12.4 g/dL (11.2-15.7); MCH 29.3 pg (27.0-33.0); MCHC 32.8 % (32.0-36.0); MCV 89 fL (80-95); MPV 11.1 fL (8.0-11.0); Platelet Count 269 10^3/uL (130-400); RBC 4.23 10^6/uL (3.93-5.22); RDW 12.1 % (11.7-14.6); RDW-SD 39.2 fL
[2024-10-02 13:26] LABS: Iron 68 ug/dL (50-170)
[2024-10-02 13:31] LABS: ALT 22 U/L (14-59); AST 17 U/L (15-37); Albumin 3.7 g/dL (3.4-5.0); Alkaline Phosphatase 57 U/L (46-116); Anion Gap 8.2 mmol/L (3-11); BUN 17 mg/dL (7-18); Bilirubin, Total 0.4 mg/dL (0.2-1.0); CO2 28.8 mmol/L (21.0-32.0); CREATININE 0.9 mg/dL (0.55-1.02); Calcium 8.9 mg/dL (8.5-10.1); Chloride 107 mmol/L (98-107); Estimated GFR 74.57 (mL/min/1.73m2); Ferritin 145 ng/mL (8-252); Glucose 93 mg/dL (74-106); Potassium 3.9 mmol/L (3.5-5.1); Sodium 144 mmol/L (136-145); Total Protein 7.2 g/dL (6.4-8.2); Vitamin D 25 Total 31 ng/mL (30-100)
[2024-10-08 17:39] LABS: Apolipoprotein B, Serum 64 mg/dL (48-124); Beta VLDL Cholesterol Not Detected mg/dL (<15); Beta VLDL Triglycerides Not Detected mg/dL (<15); Cholesterol, Total, CDC 150 mg/dL; Chylomicron Cholesterol Not Detected; Chylomicron Triglycerides Not Detected; HDL Cholesterol, CDC 43 mg/dL (>=50); LDL Cholesterol 83 mg/dL; LDL Triglycerides 36 mg/dL (<=50); Lp(a) Cholesterol <5 mg/dL (<5); LpX Not detected; Triglycerides, CDC 111 mg/dL; VLDL Cholesterol 24 mg/dL (<30); VLDL Triglycerides 54 mg/dL (<120)
== END 2024-10-02 00:29 | disposition home or self-care (01) ==
LOC: LOS 00:28
PROVIDERS: PCP Family Medicine; Visit Provider Family Medicine
DX: Z00.00 Encounter for general adult medical examination without abnormal findings (principal); E78.5 Hyperlipidemia, unspecified; I10 Essential (primary) hypertension
CPT/HCPCS: 36415; 80053; 80061; 82306; 85027; 82172; 82664; 82728; 83540

== ENCOUNTER 2024-12-06 10:00 | Outpatient (CLI) | payer OTHER, SELFPAY ==
[2024-12-06 13:16] LABS: TSH (W/Ref FT4) 1.37 uIU/mL (0.36-3.74); Vitamin B12 334 pg/mL (193-986)
== END 2024-12-06 10:01 | disposition home or self-care (01) ==
LOC: LOS 10:00
PROVIDERS: PCP Family Medicine; Referring Provider Family Medicine; Visit Provider Family Medicine
DX: E53.8 Deficiency of other specified B group vitamins (principal); Z11.59 Encounter for screening for other viral diseases; M54.2 Cervicalgia
CPT/HCPCS: 36415; 82607; 84443

== ENCOUNTER 2025-01-14 01:33 | Outpatient (CLI) | payer OTHER, SELFPAY ==
--- NOTE | 2025-01-14 11:18 | DI.RAD_ITS ---
Exam(s) RF BARIUM SWALLOW EXAM: RF BARIUM SWALLOW CLINICAL HISTORY: globus senstation,r09.a2 TECHNIQUE: 2D and realtime digital imaging was performed. CONTRAST MATERIAL: Thick and thin barium and barium tablet were administered. COMPARISON: No exams were available for comparison FINDINGS: The PA and lateral chest films show normal heart size and clear lung gloria. The lateral radar scientist view of the neck is unremarkable. Esophagus: The patient swallowed barium without difficulty. Noevidence for mucosal erosions. Nofold thickening. No mass is visible. Nostricture. A lap band noted at the fundus of the stomach. Motility: There is a normal primary stripping wave. Mild tertiary contractions were noted. There is a small hiatal hernia. Moderategastroesophageal reflux was observed during the exam. IMPRESSION: Small hiatal hernia. Moderate gastroesophageal reflux. Evidence of stricture. RADIATION DOSE DELIVERED: hua Nj=12.6 mGy
[2025-01-14] MEDS: Barium Sulfate 98% W/W 140 ML BTL PO (11:19)
[2025-01-14] MEDS: Barium Sulfate 60% W/V 355 ML BTL PO (11:20)
[2025-01-14] MEDS: Simethicone/Sod Bicarb/Cit Ac, 4 gram PACKET 1 PACKET PO (11:21)
[2025-01-14] MEDS: Barium Sulfate 700 MG TAB PO (11:22)
--- NOTE | 2025-01-14 11:54 | DI.MAMMO_ITS ---
Exam(s) MAMMO SCREENING EXAM: MAMMO SCREENING CLINICAL HISTORY: screening,z12.39 TECHNIQUE: Mammograms were interpreted according to the usual protocol including computer analysis with CAD system, tomosynthesis and C-view imaging. COMPARISON: 2017 through 2022 FINDINGS: The breasts are composed of mainly fatty density , Breast Density category A. No suspicious masses or suspicious microcalcifications are seen. No skin thickening or abnormal axillary lymph nodes are seen. There has been no significant change from prior exams. IMPRESSION: BI-RADS Category 1, Negative mammogram Yearly screening mammography is recommended. Breast Density- Category A - The breast are almost entirely fatty. Breast density Category C or D implies that the patient has dense breast tissue. Dense breast tissue can make it harder to find cancer on a mammogram. Dense breast tissue is also associated with an increased risk of breast cancer. This information about the result of the mammogram report was provided to the patient to raise their awareness. Use this report when you speak with the patient about their risks for breast cancer, which includes their family history. At that time, you may recommend additional screening tests (Ultrasound or MRI) as these tests may add significant information. A negative radiographic report should not delay biopsy if a dominant or clinically suspicious mass is present. Up to ten percent of cancers are not identified on mammography. A negative report may reinforce clinical impression. Adenosis and dense breasts may obscure an underlying neoplasm. False positive reports average 6 to 10%. Patient will receive a letter notifying them of these results.
== END 2025-01-14 01:53 ==
LOC: DI 01:33
PROVIDERS: PCP Family Medicine; Visit Provider Family Medicine
DX: Z12.31 Encounter for screening mammogram for malignant neoplasm of breast (principal); R09.A2 Foreign body sensation, throat; K44.9 Diaphragmatic hernia without obstruction or gangrene
CPT/HCPCS: 77063; 77067; 74221; J3490